=== PATIENT | female | born 1960 | race Caucasian/White ===

== ENCOUNTER 2016-09-25 11:13 | Emergency (ER) | payer MEDICAID ==
[2016-09-25 11:21] VITALS: TEMP 98.4
--- NOTE | 2016-09-25 12:16 | UCPHY ---
H & P Patient Type: Established HPI/ROS: CHIEF COMPLAINT: "Anxiety attack" HISTORY OF PRESENT ILLNESS: Patient is a 56-year-old female with a history of anxiety and depression who presents emergency department with worsening anxiety. Patient states she is being kicked out of her house. She also recently lost her job. She is feeling extremely anxious. This is similar to her previous anxiety attacks when she was getting . She has no chest pain or shortness of breath. No lightheadedness or dizziness. No skin changes. No hair loss. REVIEW OF SYSTEMS: My complete review of systems is negative except as mentioned in the HPI. Past Medical/Surgical History: Includes depression, anxiety Social history: The patient smokes Smoking Status: Current every day smoker Physical Exam: Vitals noted. Tachycardic on initial presentation. GENERAL: Well-appearing, in no acute distress, alert. HEENT: Eyes normal to inspection, normal pharynx, no signs of dehydration. NECK: No thyromegaly, no lymphadenopathy, supple. RESPIRATORY: Clear to auscultation bilaterally, no rales, rhonchi or wheezing. CVS: Regular rate and rhythm, no rubs, murmurs, or gallops. ABDOMEN: Soft, nontender, nondistended, no organomegaly. BACK: Normal to inspection, no CVA tenderness. SKIN: Normal color, no rash, warm, dry. No pallor. EXTREMITIES: No pedal edema, no calf tenderness, no Homans sign or cords, no joint swelling. NEURO/PSYCH: Alert and oriented x3, normal mood and affect, normal motor sensory exam. Constitutional: Initial Vital Signs Temperature (C) 36.9 C 09/25/16 11:18 Heart Rate 130 H 09/25/16 11:18 Respiratory Rate 14 09/25/16 11:18 Blood Pressure 174/100 H 09/25/16 11:18 O2 Delivery Mode Room Air Allergies/Adverse Reactions: omeprazole Allergy (Verified 09/16/15 12:20) Penicillins Allergy (Verified 09/16/15 12:20) Home Medications: Medication Instructions Recorded ALPRAZolam [Xanax 0.5 MG (*)] 0.5 mg PO TID #20 tab 09/25/16 Citalopram 09/25/16 Valsartan 09/25/16 Medical Decision Making ED Course/Re-evaluation: I discussed possible etiologies with the patient. Patient requests and anxiety medication. She does not want significant workup here. She was given warnings prior to leaving. She will return with worsening symptoms. Differential Diagnosis: My differential includes but is not limited to anxiety, depression, hyperthyroidism, electrolyte abnormality, sugar abnormality, dehydration, malignancy The patient has no suicidal or homicidal ideation. Departure - Departure Disposition: Home, Routine, Self-Care Clinical Impression: Anxiety Condition: Good Instructions: Anxiety (ED) Additional Instructions: Return with persistent anxiety or worsening anxiety. Also return you develop chest pain, shortness of breath, weight loss or any other concerns. Referrals: Radha Boswell MD [Medical Doctor] - 5-7 days, call for appt. Prescriptions: ALPRAZolam [Xanax 0.5 MG (*)] 0.5 mg PO TID #20 tab - PQRS PQRS Measurement: My PQRS negative my PQRS negative my PQRS negative my PQRS negative 134: Depression screening and followup, PRIME MD-PHQ2 (12 years and older) Over the last 2 weeks, how often have you been bothered by any of the following problems? 1. Feeling down, depressed, or hopeless? 2. Little interest or pleasure in doing things? Patient answered no to both 1 and 2 130: Documentation of medications. Reviewed all patient medications, doses, route and frequency. 226: Do you smoke? Yes. The patient was instructed to stop smoking.
[2016-09-25 12:28] VITALS: BP 172/100; PULSE 93; RESP 20; O2SAT 98
== END 2016-09-25 12:25 | disposition home or self-care (01) ==
LOC: CED 11:13
DX: F41.9 Anxiety disorder, unspecified (principal)
CPT/HCPCS: 99214-PO; G0463-PO

== ENCOUNTER 2017-11-18 18:54 | Emergency (ER) | payer MEDICAID ==
--- NOTE | 2017-11-18 19:41 | EDPHY ---
H & P Stated Complaint: ARIS HAND UNGER/ SUN Time Seen by Provider: 11/18/17 19:41 HPI/ROS: CHIEF COMPLAINT: Erythema and irritation to dorsal aspect of bilateral hands HISTORY OF PRESENT ILLNESS: The patient presents to the ED with irritation secondary to a sunburn to the dorsal aspect of her hands. The patient does have a history of vitiligo. She denies any additional acute medical complaints. She has no additional complaints of erythema, fever or rash elsewhere. REVIEW OF SYSTEMS: A comprehensive 10 point review of systems is otherwise negative aside from elements mentioned in the history of present illness. Source: Patient - Personal History Current Tetanus Diphtheria and Acellular Pertussis (TDAP): Yes - Medical/Surgical History Hx Chronic Respiratory Disease: Yes Hx Diabetes: No Hx Cardiac Disease: No Hx Renal Disease: No Hx Cirrhosis: No Hx Alcoholism: Yes Hx HIV/AIDS: No Hx Splenectomy or Spleen Trauma: No Other PMH: depression, HTN, COPD, VITALIGO - Social History Smoking Status: Light smoker - Physical Exam Exam: General Appearance: Alert, no distress Eyes: Pupils equal and round no pallor or injection ENT, Mouth: Mucous membranes moist Respiratory: There are no retractions, lungs are clear to auscultation Cardiovascular: Regular rate and rhythm Gastrointestinal: Abdomen is soft and nontender, no masses, bowel sounds normal Neurological: 5/5 strength all 4 extremities Skin: Hypopigmentation consistent with vitiligo, mild erythema noted to the dorsum of the right left hand consistent with a solar dermatitis Musculoskeletal: Neck is supple nontender Extremities: symmetrical, full range of motion Constitutional: Initial Vital Signs Temperature (C) 36.7 C 11/18/17 19:22 Heart Rate 72 11/18/17 19:22 Respiratory Rate 16 11/18/17 19:22 Blood Pressure 167/98 H 11/18/17 19:22 O2 Sat (%) 96 11/18/17 19:22 O2 Delivery Mode Room Air Allergies/Adverse Reactions: omeprazole Allergy (Verified 09/16/15 12:20) Penicillins Allergy (Verified 09/16/15 12:20) Home Medications: Medication Instructions Recorded Valsartan 09/25/16 Escitalopram Oxalate 11/18/17 Gabapentin 11/18/17 Voltaren 11/18/17 traZODone 11/18/17 Medical Decision Making ED Course/Re-evaluation: I recommend the patient use 1% hydrocortisone ointment for the next week twice daily. Patient has been advised to use sunscreen and zinc oxide for sore protection. She is advised to return to the ED for any increasing pain, redness or other acute complaints. Departure - Departure Disposition: Home, Routine, Self-Care Clinical Impression: Sunburn Condition: Good Instructions: Sunburn (ED) Additional Instructions: 1. Apply 1% hydrocortisone ointment twice a day for the next week. 2. Continue to use sunblock, zinc oxide and consider a lightweight glove when outside. 3. Follow up with your primary care provider for any unimproved symptoms. 4. Return to the ED for markedly worsening symptoms, fever, swelling or other concerns. Referrals: [facility],. [Clinic] - As per Instructions
[2017-11-18 20:18] VITALS: BP 130/90
== END 2017-11-18 20:17 | disposition home or self-care (01) ==
DX: L55.9 Sunburn, unspecified (principal); I10 Essential (primary) hypertension; J44.9 Chronic obstructive pulmonary disease, unspecified; F17.200 Nicotine dependence, unspecified, uncomplicated

== ENCOUNTER 2017-12-07 19:10 | Emergency (ER) | payer MEDICAID ==
--- NOTE | 2017-12-07 19:18 | EDPHY ---
H & P Stated Complaint: L shoulder pain, hx blood clots Source: Patient Exam Limitations: No limitations - Personal History Current Tetanus Diphtheria and Acellular Pertussis (TDAP): No - Medical/Surgical History Hx Chronic Respiratory Disease: Yes Hx Diabetes: No Hx Cardiac Disease: No Hx Renal Disease: No Hx Cirrhosis: No Hx Alcoholism: Yes Hx HIV/AIDS: No Hx Splenectomy or Spleen Trauma: No Other PMH: depression, HTN, COPD, VITALIGO - Social History Smoking Status: Light smoker Time Seen by Provider: 12/07/17 19:15 HPI/ROS: HPI: This is a 57-year-old female who presents with Chief Complaint: Left shoulder pain Location: Left shoulder Quality: Pain Duration: Several days Signs and Symptoms: No bleeding, no radiation, no numbness, no weakness, no tingling, no incontinence, no decreased range of motion, + swelling, + pain, no fever Timing: Acute, constant Severity: 8/10 Context: Patient is right-hand dominant, presents with complaints of several day history of left anterior shoulder pain that she feels is related to a viral clot. 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 She stopped taking her Xarelto approximately 3 months ago. She took for a total of 3 months. Denies any overuse, injury, trauma. She has no skin color changes, radiation, weakness. She denies chest pain, shortness of breath, palpitations. Patient reports that she has not been on pain medications for several months but does have daily chronic mild left anterior shoulder pain that she relates to postoperative in nature. Modifying Factors: None Comment: ROS: see HPI Constitutional: No fever, no chills, no weight loss Eyes: No blurred vision Respiratory: No shortness of breath, no cough Cardiovascular: No chest pain Gastrointestinal: No nausea, no vomiting no diarrhea Genitourinary: No dysuria Extremities: No myalgias Neurologic: No weakness, no numbness Skin: No rashes Hematologic: No bruising, no bleeding MEDICAL/SURGICAL/SOCIAL HISTORY: Medical history: depression, HTN, COPD, VITILIGO, anxiety Surgical history: Left shoulder replacement Social history: . Unemployed CONSTITUTIONAL: Nontoxic-appearing but tearful thin elderly white female, crying at bedside, awake and alert HEENT: Atraumatic and normocephalic. NECK: supple, no midline tenderness, flexion 45 degrees, extension 45 degrees, right and left lateral flexion 45 degrees. No meningismus. Cardiovascular: Normal S1/S2, regular rate, regular rhythm, without murmur rub or gallop. PULMONARY/CHEST: Symmetrical and nontender. no crepitus. Clear to auscultation bilaterally. Good air movement. No accessory muscle usage. ABDOMEN: Soft, nondistended, nontender, no ecchymosis. PELVIC: no pain with rocking; bilateral hips flexion 125 degrees, extension 30 degrees, with no pain internal rotation and no pain external rotation. BACK: No midline tenderness, no paraspinous spasm, deep tendon reflexes 2/2, no pain with straight leg raise, No foot drop. Achilles reflexes are equal bilaterally. Able to walk on heels and toes without difficulty. EXTREMITIES: 2/2 pulses, strength 5/5, left SHOULDER: Well-healed anterior shoulder incision; moderate tenderness over the incision site but no signs of erythema, fluctuance, warmth. Arc test abduction to 180, abduction to 45, horizontal flexion 130, horizontal extension to 45, deltoid strength 5/5. No pain with Neer test/Hugo test (impingement). No Tenderness to palpation over AC joint. Left arm is the same size as the right arm. DIP/PIP/MCP flexion/ extension intact with good light touch sensation. no deformities, no clubbing, no cyanosis or edema. NEUROLOGICAL: no focal neuro deficits. GCS 15. Light touch sensation intact. SKIN: Warm and dry, no erythema. no rash. Good capillary refill. (Zonia Singh) Constitutional: Initial Vital Signs Temperature (C) 36.7 C 12/07/17 19:11 Heart Rate 90 12/07/17 19:11 Respiratory Rate 18 12/07/17 19:11 Blood Pressure 116/81 H 12/07/17 19:11 O2 Sat (%) 97 12/07/17 19:11 O2 Delivery Mode Room Air Allergies/Adverse Reactions: omeprazole Allergy (Verified 12/07/17 19:11) Penicillins Allergy (Verified 12/07/17 19:11) Home Medications: Medication Instructions Recorded Valsartan 09/25/16 Escitalopram Oxalate 11/18/17 Gabapentin 11/18/17 Voltaren 11/18/17 traZODone 11/18/17 Medical Decision Making - Diagnostics EKG Interpretation: 12 lead EKG: Indication: Left arm pain Rhythm: Normal sinus rhythm, rate of 70 beats per minute [place]: Normal Intervals: Normal QRS: Normal ST segments: Normal T segments: Normal INTERPRETATION: No acute ischemic changes, no arrhythmias The 12 lead EKG was interpreted by myself and with attending. (Zonia Singh) 12 lead EKG is interpreted in Trace master View by emergency department physician. (Lynnette Walters) ED Course/Re-evaluation: EKG and left upper extremity ultrasound ordered. Patient given [place] x1 upon arrival. No signs of neurovascular compromise/tenting of skin/compartment syndrome/ extremities and joints examined above and below area of concern and are neurovascularly intact/cellulitis/gouty arthropathy. No indication for left shoulder x-ray as no trauma/injury. EKG my read with attending shows no acute ischemic changes, no arrhythmias. 2151: Called by Radiology, Dr. Terry, who advised that ultrasound shows no deep venous thrombosis. Advised patient to follow up with Orthopedics for shoulder pain. This patient was seen under the supervision of my secondary supervising physician. I evaluated care for this patient independently. Discussed this patient with Dr. Walters. (Zonia Singh) The patient was evaluated and managed by the physician restaurant assistant manager. I have reviewed this chart and I agree with the findings and plan of care as documented , as indicated by my signature. I am the secondary supervising physician. ( Lynnette Walters) Differential Diagnosis: Arm pain including but not limited to DVT, chronic pain, bursitis, rotator cuff injury. (Zonia Singh) - Data Points Medications Given: Discontinued Medications Hydrocodone Bitart/Acetaminophen ([place] 5/325) 1 tab PO EDNOW ONE Stop: 12/07/17 19:20 Last Admin: 12/07/17 19:26 Dose: 1 tab Departure - Departure Disposition: Home, Routine, Self-Care Clinical Impression: Left anterior shoulder pain Condition: Good Instructions: Shoulder Pain (ED) Additional Instructions: The ultrasound today does not show any blood clot. Please follow-up with your orthopedist who performed your surgery to discuss left anterior shoulder pain. Take Tylenol 650 mg every 4 hours and/or Ibuprofen 600 mg every 8 hours with food as needed for pain. Apply ice for 30 minutes at a time; 2-3 times per day for the next 1-2 days. Referrals: [facility] [Insurance Risk Surveyor] - As per Instructions
[2017-12-07] MEDS ORDERED: HYDROCODONE/APAP 5/325 TAB PO ONE (19:19)
--- NOTE | 2017-12-07 19:27 | CPEKG ---
Heart Rate: 70 RR Interval: 857 P-R Interval: 172 QRSD Interval: 98 QT Interval: 400 QTC Interval: 432 P [place]: 45 QRS [place]: 53 T Wave [place]: 49 EKG Severity - NORMAL ECG - EKG Impression: SINUS RHYTHM Electronically Signed By: Damian Nicolas 07-Dec-2017 20:05:11
[2017-12-07 22:06] VITALS: BP 96/67
== END 2017-12-07 22:06 | disposition home or self-care (01) ==
DX: M25.512 Pain in left shoulder (principal); I10 Essential (primary) hypertension; J44.9 Chronic obstructive pulmonary disease, unspecified; F17.200 Nicotine dependence, unspecified, uncomplicated

== ENCOUNTER 2017-12-16 07:18 | Emergency (ER) | payer MEDICAID ==
[2017-12-16 07:23] VITALS: BP 123/61
--- NOTE | 2017-12-16 07:51 | EDPHY ---
H & P Time Seen by Provider: 12/16/17 07:49 HPI/ROS: Chief complaint. Rash HPI. 57-year-old female presents emergency department with itchy rash to the back of her neck for 3 days. She is unaware of insect bites. She lives in a shelter and they are concerned about scabies or bedbugs. However she only has the bites on the back of her neck. No symptoms to arms legs armpits or groin. She feels fatigued but otherwise no fever or chest discomfort or shortness of breath or abdominal pain. She was not aware of bites. She has no new meds or detergents. Using Benadryl with inadequate relief ROS Constitutional. Fatigue Eyes. no problems with vision ENT. no sore throat, no nasal drainage Cardiovascular. no chest pain Respiratory. no shortness of breath, no cough Abdominal. no abdominal pain, no nausea/vomiting, no diarrhea . no problems urinating MS. no calf pain/swelling, no neck/back pain, no joint pain Skin. Itchy type bites to the back of her neck Lymph. no swollen glands Neuro. no headache, no dizziness, no difficulty walking or with speech Past Medical/Surgical History: Depression, hypertension, COPD, vitiligo, DVT Social History: Single, daily smoker, no alcohol Smoking Status: Light smoker Physical Exam: General Appearance: Alert pleasant well-developed female mild distress vital signs are stable Eyes: Pupils equal and round no pallor or injection. ENT, Mouth: Mucous membranes are moist. Respiratory: There are no retractions, lungs are clear to auscultation. Cardiovascular: Regular rate and rhythm. Gastrointestinal: Abdomen is soft and nontender, no masses, bowel sounds normal. Neurological: Awake and alert, sensory and motor exams grossly normal. Skin: On the posterior neck patient has for maculopapular lesions which appear to be insect bites with some raised redness and then what appears to be a central bite or sting. She also has 1 on the right lateral neck. Otherwise no lesions on her back or chest axilla abdomen extremities or groin or between fingers or toes. Musculoskeletal: Neck is supple nontender. Extremities symmetrical, full range of motion. Psychiatric: Patient is oriented X 3, there is no agitation. Constitutional: Initial Vital Signs Temperature (C) 36.5 C 12/16/17 07:21 Heart Rate 69 12/16/17 07:21 Respiratory Rate 16 07/12/18 07:21 Blood Pressure 123/61 H 12/16/17 07:21 O2 Sat (%) 95 12/16/17 07:21 O2 Delivery Mode Room Air Allergies/Adverse Reactions: omeprazole Allergy (Verified 12/16/17 07:19) Penicillins Allergy (Verified 12/16/17 07:19) Home Medications: Medication Instructions Recorded Valsartan 09/25/16 Escitalopram Oxalate 11/18/17 Gabapentin 11/18/17 traZODone 11/18/17 predniSONE 40 mg PO DAILY #4 tablet 12/16/17 Medical Decision Making Procedures: Prednisone orally ED Course/Re-evaluation: These would appear to be insect bites or stings on her neck. She has no lesions anywhere else. I really do not think this represents scabies or bedbugs. I suspect that these are insect bites or stings Differential Diagnosis: Patient remains stable. She and I discussed diagnosis, treatment plan including criteria for return importance of follow-up and further evaluation. She expresses understanding and agreement Departure - Departure Disposition: Home, Routine, Self-Care Clinical Impression: Rash Condition: Good Instructions: Insect Bite or Sting (ED) Additional Instructions: Prednisone daily next 2 days. May continue to use Benadryl if necessary. Return for worsening symptoms. Recheck in 2-3 days if not improved Referrals: [facility] [Other] - 2-3 days, if not improved Prescriptions: predniSONE 40 mg PO DAILY #4 tablet
[2017-12-16] MEDS ORDERED: predniSONE 20 MG TAB PO ONE (07:58)
== END 2017-12-16 08:13 | disposition home or self-care (01) ==
DX: R21 Rash and other nonspecific skin eruption (principal); I10 Essential (primary) hypertension; J44.9 Chronic obstructive pulmonary disease, unspecified; F17.200 Nicotine dependence, unspecified, uncomplicated
CPT/HCPCS: J7512

== ENCOUNTER 2017-12-28 18:27 | Emergency (ER) | payer MEDICAID ==
[2017-12-28] MEDS ORDERED: METOCLOPRAMIDE 10 MG/2 ML VIAL IVP ONE (18:53)
[2017-12-28] MEDS ORDERED: NS 1,000 ML IV ONE (18:53)
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
[2017-12-28] MEDS ORDERED: IPRATROPIUM/ALBUTEROL 3 ML DEYVIAL IH ONE (19:13)
[2017-12-28 19:19] LABS: PLATELET COUNT 296 10^3/uL (150-400)
[2017-12-28 23:08] VITALS: BP 108/74
== END 2017-12-28 23:00 | disposition home or self-care (01) ==
LOC: EDUNIT#
DX: G44.1 Vascular headache, not elsewhere classified (principal); J98.01 Acute bronchospasm; R42 Dizziness and giddiness; E86.9 Volume depletion, unspecified; I10 Essential (primary) hypertension; J44.9 Chronic obstructive pulmonary disease, unspecified; F17.200 Nicotine dependence, unspecified, uncomplicated
CPT/HCPCS: 96374; G0480; J1200; J2765

== ENCOUNTER 2018-07-20 11:52 | Emergency (ER) | payer MEDICAID ==
--- NOTE | 2018-07-20 12:14 | EDPHY ---
HPI/HX/ROS/PE/MDM Narrative: CHIEF COMPLAINT: Chest pain HPI: This patient is a 57 year old female with history of hypertension, COPD. This morning, the patient began to feel faint on the way to her PCP's office for a routine visit. While she was waiting, she developed worsening weakness and sharp pains chest pains. These are worse with deep inspiration. 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 She denies any recent falls or heavy lifting. She notes that for the past two days, she has felt unwell. Endorses some chills and sweating yesterday. No nausea or vomiting. No diarrhea, urinary complaints. REVIEW OF SYSTEMS: A comprehensive 10 system review of systems is otherwise negative aside from elements mentioned in the history of present illness and medical decision making. PMH: Depression, hypertension, COPD, history of alcoholism. SOCIAL HISTORY: Lives in [place]. . Light tobacco use. PHYSICAL EXAM: General:Patient is alert, in no acute distress. ENT:Eyes are normal to inspection. ENT inspection normal. Neck: Normal inspection. Full range of motion. Respiratory:No respiratory distress. Breath sounds normal bilaterally. Cardiovascular: Regular rate and rhythm. Strong peripheral pulses. Normal cap refill. Abdomen:The abdomen is nontender to palpation. There are no peritoneal signs. There are normal bowel sounds. Back: Normal to inspection. No tenderness to palpation. Skin: Normal color. No rash. Warm and dry. Extremities: Normal appearance. Full range of motion. Neuro: Oriented x3. Normal motor function. Normal sensory function. ED Course: 57 y/o female presents with chest pain and weakness onset this morning. Plan for EKG, chest x-ray, labs including CBC, chemistries, d-dimer, troponin. Plan to administer 4mg IV morphine for pain relief. EKG was ordered and interpreted by myself. Please see [facility] system for official reading. CXR largely unremarkable. Laboratory studies largely unremarkable. POC troponin negative. D-dimer within normal limits at 0.40. Given patient's symptoms and history, plan to proceed with CTA chest to r/o PE. Patient would like to proceed with CTA for further evaluation. 14:[address] Tse, radiologist. CTA negative for PE or other acute processes. 14:30 Repeat EKG was ordered and interpreted by myself. Please see [facility] [facility] system for official reading. No evidence of ACS or pericarditis. Plan for repeat troponin. If this is negative, plan for discharge. 1525: Repeat troponin unchanged. - Data Points Imaging Results: Imaging Impressions Chest X-Ray 07/20/18 11:55 Impression: Clear lungs. No pneumonia or explanation for shortness of breath. Chest/Thorax CTA 07/20/18 13:13 Impression: 1. No evidence of thrombopulmonary embolic disease. 2. Minimally dilated ascending aorta (4.0 cm AP). Recommend follow up. 3. No aortic dissection. 4. Mild airways disease. No pneumonia or effusion. Findings discussed with Emergency Department physician, Kolby Gavin MD, on 07/20/2018, 14:19. Imaging: Discussed imaging studies w/ call center manager Radiologist, I viewed and interpreted images myself Laboratory Results: Laboratory Results 07/20/18 12:45 07/20/18 12:45 07/20/18 07/20/18 07/20/18 12:50 12:45 12:45 WBC RBC Hgb Hct MCV MCH MCHC RDW Plt Count MPV Neut % (Auto) Lymph % (Auto) [place] % (Auto) Eos % (Auto) Baso % (Auto) Nucleat RBC Rel Count Absolute Neuts (auto) Absolute Lymphs (auto) Absolute Monos (auto) Absolute Eos (auto) Absolute Basos (auto) Absolute Nucleated RBC Immature Gran % Immature Gran # D-Dimer 0.40 ug/mLFEU ug/mLFEU (0.00-0.50) Sodium 139 mEq/L mEq/L (135-145) Potassium 4.3 mEq/L mEq/L (3.5-5.2) Chloride 105 mEq/L mEq/L (97-110) Carbon Dioxide 23 mEq/l mEq/l (22-31) Anion Gap 11 mEq/L mEq/L (6-14) BUN 11 mg/dL mg/dL (7-23) Creatinine 0.8 mg/dL mg/dL (0.6-1.0) Estimated GFR > 60 Glucose 86 mg/dL mg/dL (70-100) Calcium 9.9 mg/dL mg/dL (8.5-10.4) POC Troponin I 0.02 ng/mL ng/mL (0.00-0.08) 07/20/18 12:45 WBC 12.17 10^3/uL H 10^3/uL (3.80-9.50) RBC 4.69 10^6/uL 10^6/uL (4.18-5.33) Hgb 15.2 g/dL g/dL (12.6-16.3) Hct 45.2 % % (38.0-47.0) MCV 96.4 fL fL (81.5-99.8) MCH 32.4 pg pg (27.9-34.1) MCHC 33.6 g/dL g/dL (32.4-36.7) RDW 13.7 % % (11.5-15.2) Plt Count 331 10^3/uL 10^3/uL (150-400) MPV 9.4 fL fL (8.7-11.7) Neut % (Auto) 67.2 % % (39.3-74.2) Lymph % (Auto) 25.1 % % (15.0-45.0) [place] % (Auto) 5.9 % % (4.5-13.0) Eos % (Auto) 0.8 % % (0.6-7.6) Baso % (Auto) 0.4 % % (0.3-1.7) Nucleat RBC Rel Count 0.0 % % (0.0-0.2) Absolute Neuts (auto) 8.17 10^3/uL H 10^3/uL (1.70-6.50) Absolute Lymphs (auto) 3.06 10^3/uL H 10^3/uL (1.00-3.00) Absolute Monos (auto) 0.72 10^3/uL 10^3/uL (0.30-0.80) Absolute Eos (auto) 0.10 10^3/uL 10^3/uL (0.03-0.40) Absolute Basos (auto) 0.05 10^3/uL 10^3/uL (0.02-0.10) Absolute Nucleated RBC 0.00 10^3/uL 10^3/uL (0-0.01) Immature Gran % 0.6 % % (0.0-1.1) Immature Gran # 0.07 10^3/uL 10^3/uL (0.00-0.10) D-Dimer Sodium Potassium Chloride Carbon Dioxide Anion Gap BUN Creatinine Estimated GFR Glucose Calcium POC Troponin I Medications Given: Discontinued Medications Ketorolac Tromethamine (Toradol) 30 mg IVP EDNOW ONE Stop: 07/20/18 14:31 Last Admin: 07/20/18 14:36 Dose: 30 mg Morphine Sulfate (Morphine) 4 mg IVP EDNOW ONE Stop: 07/20/18 12:15 Last Admin: 07/20/18 12:25 Dose: 4 mg Point of Care Test Results: Chemistry 07/20/18 12:50 POC Troponin I 0.02 ng/mL ng/mL (0.00-0.08) General Time Seen by Provider: 07/20/18 11:55 Initial Vital Signs: Initial Vital Signs Temperature (C) 36.7 C 07/20/18 11:56 Heart Rate 72 07/20/18 11:56 Respiratory Rate 20 07/20/18 11:56 Blood Pressure 148/70 H 07/20/18 11:56 O2 Sat (%) 99 07/20/18 11:56 O2 Delivery Mode Room Air O2 (L/minute) 1 Allergies/Adverse Reactions: omeprazole Allergy (Verified 07/20/18 12:14) Penicillins Allergy (Verified 07/20/18 12:14) Home Medications: Medication Instructions Recorded Valsartan 09/25/16 Escitalopram Oxalate 11/18/17 Gabapentin 11/18/17 traZODone 11/18/17 Albuterol [Proventil Inhaler HFA 2 puffs IH QID PRN #1 mdi 12/28/17 (*)] Departure - Departure Clinical Impression: Chest pain Qualifiers: Chest pain type: chest pain on breathing Qualified Code(s): R07.1 - Chest pain on breathing Condition: Good Instructions: Chest Pain (ED) Additional Instructions: Follow-up with your primary doctor within 72 hours. Return to the Emergency Department for fever, chest pain, shortness of breath, increasing pain or other worsening of condition. Follow up with a third officer for further testing, as soon as possible, within one week. As we discussed, it is impossible to fully rule out heart disease as the cause of your chest pain in the emergency department. We would be happy to reevaluate you and observe you in the hospital at any time. Referrals: Eran Orlando MD [Medical Doctor] - As per Instructions Report Scribed for: Kolby Gavin Report Scribed by: Zoila Valerio Date of Report: 07/20/18 Time of Report: 15:13 Physician Review and Approval Statement: Portions of this note were transcribed by an ED scribe. I personally performed the history, physical exam, and medical decision making; and confirm the accuracy of the information in the transcribed note.
[2018-07-20 12:56] LABS: PLATELET COUNT 331 10^3/uL (150-400)
[2018-07-20] MEDS ORDERED: IOHEXOL 350mgI/ML (OMNIPAQUE) 150 ML BTL IV ONE (13:42)
--- NOTE | 2018-07-20 13:55 | CPEKG ---
Test Reason : OPEN Blood Pressure : / mmHG Vent. Rate : 073 BPM Atrial Rate : 075 BPM P-R Int : 154 ms QRS Dur : 088 ms QT Int : 406 ms P-R-T Axes : 044 029 030 degrees QTc Int : 448 ms Sinus rhythm Atrial premature complex Confirmed by Kolby Gavin ([id number]) on 07/20/2018 1:55:16 PM Referred By: Kolby Gavin Confirmed By:Kolby Gavin
[2018-07-20] MEDS ORDERED: KETOROLAC 30 MG/1 ML SDV IVP ONE (14:30)
[2018-07-20 15:37] VITALS: BP 127/102
--- NOTE | 2018-07-24 22:34 | CPEKG ---
Test Reason : OPEN Blood Pressure : / mmHG Vent. Rate : 080 BPM Atrial Rate : 077 BPM P-R Int : 152 ms QRS Dur : 089 ms QT Int : 388 ms P-R-T Axes : 042 027 045 degrees QTc Int : 448 ms Sinus rhythm Confirmed by Kolby Gavin ([id number] on 07/24/2018 10:34:04 PM Referred By: Kolby Gavin Confirmed By:Kolby Gavin
== END 2018-07-20 15:36 | disposition home or self-care (01) ==
LOC: EDUNIT#
DX: R07.1 Chest pain on breathing (principal)
CPT/HCPCS: 84484-ER; 96374; J1885; J2270; Q9967

== ENCOUNTER 2018-07-23 21:37 | Emergency (ER) | payer MEDICAID ==
[2018-07-23 21:46] VITALS: BP 145/111
[2018-07-23] MEDS ORDERED: NS 1,000 ML IV ONE (21:57)
[2018-07-23 22:12] LABS: PLATELET COUNT 292 10^3/uL (150-400)
--- NOTE | 2018-07-23 23:44 | CPEKG ---
Test Reason : OPEN Blood Pressure : / mmHG Vent. Rate : 101 BPM Atrial Rate : 104 BPM P-R Int : 149 ms QRS Dur : 090 ms QT Int : 343 ms P-R-T Axes : 073 045 035 degrees QTc Int : 445 ms Sinus tachycardia Atrial premature complexes Confirmed by Donnie Hernandez ([id number]) on 07/23/2018 11:43:56 PM Referred By: Hayden Anderson Confirmed By:Donnie Hernandez
== END 2018-07-23 22:10 | disposition left against medical advice (07) ==
DX: R07.9 Chest pain, unspecified (principal); F41.9 Anxiety disorder, unspecified
CPT/HCPCS: 84484-ER; G0480